=== PATIENT | male | born 1975 | race Caucasian/White ===

== ENCOUNTER 2018-10-26 12:03 | Inpatient (IN) ==
[2018-10-26] MEDS ORDERED: AMIDATE ONE (12:07)
[2018-10-26] MEDS ORDERED: QUELICIN ONE (12:07)
[2018-10-26] MEDS ORDERED: NARCAN ONE ×2 (12:08)
[2018-10-26] MEDS: DIPRIVAN 1% 1,000 MG/100 ML BOTTLE IV SCH ×2 (12:15→20:15)
[2018-10-26] MEDS ORDERED: MORPHINE ONE (12:17)
[2018-10-26] MEDS ORDERED: DIPRIVAN 1% 1,000 MG/100 ML BOTTLE ONE (12:17)
[2018-10-26] MEDS ORDERED: NS 1,000 ML IV ONE ×2 (12:19→12:30)
[2018-10-26] MEDS: LEVOPHED 8 MG in D5 1/2 NS 250 ML IV SCH (12:30)
[2018-10-26 12:47] LABS: BASO# 0.01 X1000 (0.0-0.2); HEMATOCRIT 47.4 % (42.0-52.0); HEMOGLOBIN 15.1 g/dL (14.0-18.0); IMM GRAN# 0.06 X1000 (0.0-0.04); IMM GRAN% 0.3 % (0.0-0.5); LYMPH# 0.56 X1000 (1.2-3.4); LYMPH% 2.7 % (20.5-51.1); MCH 27.5 PG (27-31); MCHC 31.9 g/dL (33-37); MCV 86.2 FL (81-99); MONO% 6.3 % (1.7-9.3); MPV 10.1 FL (7.4-10.4); NEUT# 18.67 X1000 (1.4-6.5); NEUT% 90.7 % (42.2-75.2); PLT 366 X1000 (130-400); RDW 13.7 % (11.5-14.5)
[2018-10-26 12:49] LABS: INR 1.22; PROTIME 16.4 Seconds (11.0-16.0)
[2018-10-26 12:50] LABS: PTT 34.4 Seconds (22.3-41.8)
--- NOTE | 2018-10-26 12:52 | Diag Imaging Result Doc PS360 ---
CHEST-PORTABLE - 10/26/2018 INDICATION: post intubation COMPARISON: 05/07/2016 FINDINGS: There is an endotracheal tube in good position at about T3. There is a nasogastric tube coiled in the stomach. There are bibasilar infiltrates right greater than left. IMPRESSION: Bilateral basilar infiltrate/pneumonia. Good support tube placement. Electronically signed by Chay Steinberg 10/26/2018 12:49 PM
[2018-10-26] MEDS ORDERED: NS 2,000 ML ONE (12:58)
[2018-10-26 13:02] LABS: URINE SOURCE CATH
[2018-10-26 13:09] LABS: BILIRUBIN URINE NEGATIVE (NEGATIVE); BLOOD URINE NEGATIVE (NEGATIVE); COLOR YELLOW; GLUCOSE URINE NEGATIVE (NEGATIVE); KETONE URINE NEGATIVE (NEGATIVE); LEUKOCYTES URINE NEGATIVE (NEGATIVE); NITRITE URINE NEGATIVE (NEGATIVE); PH URINE 5.5; PROTEIN URINE 30 mg/dL (NEGATIVE); SP GRAVITY URINE 1.012; TURBIDITY URINE HAZY (CLEAR); UROBILINOGEN URINE 2 mg/dL (NORMAL)
[2018-10-26 13:13] LABS: UR EPITHELIAL CELLS <10 /HPF (<10); URINE BACTERIA NEGATIVE /HPF; URINE RBC <10 /HPF (<10); URINE WBC <10 /HPF (<10)
[2018-10-26 13:15] LABS: ALB/GLOB RATIO 1.1; CALCIUM 8.9 mg/dL (8.8-10.2); CREATININE 5.3 mg/dL (0.7-1.2); TOTAL BILIRUBIN 1.12 mg/dL (0.20-1.00); TOTAL PROTEIN 7.5 g/dL (6.3-8.3)
[2018-10-26 13:19] LABS: POTASSIUM 6.7 mmol/L (3.5-5.1)
[2018-10-26] MEDS ORDERED: HUMULIN R IV ONE (13:30)
[2018-10-26] MEDS ORDERED: SODIUM BICARBONATE 8.4% IV ONE (13:30)
[2018-10-26] MEDS ORDERED: ZOSYN 3.375 GM in NS 50 ML IV ONE (13:30)
[2018-10-26] MEDS ORDERED: D50W SYRINGE IV ONE (13:30)
[2018-10-26] MEDS ORDERED: VANCOMYCIN 1 GM/NS 1 GM/250 ML IVPB IV ONE (13:30)
[2018-10-26] MEDS ORDERED: QUELICIN IV ONE (13:39)
[2018-10-26] MEDS ORDERED: MORPHINE IV ONE (13:39)
[2018-10-26] MEDS ORDERED: AMIDATE IV ONE (13:39)
[2018-10-26] MEDS ORDERED: NARCAN IV ONE (13:39)
[2018-10-26 14:37] LABS: BE -2.8 mmoll (-3.0-3.0); BLOOD TYPE ARTERIAL; HCO3-(ACT) 22.7 mmoll (20.0-26.0); METHB 1.5 % (0.0-1.5); O2(CT) 19.1 mL/dL (15.0-23.0); O2HB 97.2 % (95.0-99.0); PCO2(98.6) 49 mmHg (35-45); PO2(98.6) 235 mmHg (60-100); SAMPLE BLOOD; SAO2 99.9 % (95.0-100.0); SRATE 16 BPM; THB 13.6 g/dL (11.5-17.4); TVOL 550 mL
[2018-10-26 14:40] LABS: ALLEN TEST NO; MODALITY VENTILATOR
[2018-10-26] MEDS ORDERED: SOLU-CORTEF IV ONE (15:22)
--- NOTE | 2018-10-26 15:26 | EKG Report ---
Test Performed on : 10/26/2018 12:20:04 PM Test Reason : UNRESPONSIVE Blood Pressure : / mmHG Vent. Rate : 135 BPM Atrial Rate : 138 BPM P-R Int : 122 ms QRS Dur : 094 ms QT Int : 324 ms P-R-T Axes : 059 035 040 degrees QTc Int : 486 ms Sinus tachycardia. Incomplete right bundle branch block Borderline ECG When compared with ECG of 11-MAY-2018 08:39, Vent. rate has increased BY 54 BPM Criteria for Inferior infarct are no longer present Nonspecific T wave abnormality has replaced inverted T waves in Inferior leads Unconfirmed Result
[2018-10-26] MEDS: FENTANYL 1,000 MICROGM in NS 80 ML IV SCH ×3 (15:51→20:23)
[2018-10-26] MEDS ORDERED: OFIRMEV 1000 MG/ISOTONIC SOLN 1,000 MG/100 ML BOTTLE IV ONE (16:17)
--- NOTE | 2018-10-26 16:55 | Diag Imaging Result Doc PS360 ---
EXAM: CT HEAD W/O CONTRAST HISTORY: ams TECHNIQUE: CT head without contrast COMPARISON: 06/27/2018 FINDINGS: No parenchymal hemorrhage. No epidural or subdural hematoma. No subarachnoid hemorrhage. No mass identified on this noncontrasted exam. No hydrocephalus. Mild ethmoid and maxillary mucosal thickening with a small air-fluid level in the left maxillary sinus. There is a nasogastric tube. IMPRESSION: No hemorrhage. A follow-up MRI may be beneficial. This exam was performed using automated exposure control, adjustment of mA or kV according to patient size, and/or use of iterative reconstruction technique. Electronically signed by Angelito Neff 10/26/2018 4:53 PM
--- NOTE | 2018-10-26 17:30 | PROVIDER DOCUMENTATION ---
This chart was entered by Yoli Garcia Scribe, acting as scribe for Pierre Gale MD. HPI-Neurological Disorder - General Chief Complaint: Unresponsive Stated Complaint: unresponsive Time Seen by Provider: 10/26/18 12:16 Source: EMS Allergies/Adverse Reactions: Patient Allergies Allergy/AdvReac Type Severity Reaction Status Date / Time No Known Allergies Allergy Verified 10/26/18 13:35 Home Medications: Home Medication List Medication Instructions Recorded Confirmed Last Taken Type Lisinopril 40 mg PO DAILY 07/15/14 05/16/18 05/15/18 07:00 History 40 Celecoxib [Celebrex] 100 mg PO DAILY 05/11/18 05/16/18 05/15/18 07:00 History 100 Escitalopram [Lexapro] 10 mg PO DAILY 05/11/18 05/16/18 05/15/18 07:00 History 10 Hydrocodone/Acetaminophen [[place] 1 each PO Q4-6H PRN PRN #30 tablet 05/16/18 Unknown Rx 10-325 Tablet] Mouthwash Compounding Base 227 240 ml MM DIRECTED #240 05/16/18 Unknown Rx [Mouthwash-Om] mouthwash Hydrocodone/APAP 10 mg/325 mg 1 ea PO Q6H PRN PRN 3 Days #12 tab 06/27/18 Un known Rx [[place]-10] Mupirocin Cream [Bactroban Cream] 1 applicatn TOP TID 7 Days #1 tube 06/27/18 Unknown Rx - History of Present Illness-Neuro Nature of Presenting Problem: Patient is a 43 year old male who presents to the ED via EMS with altered mental status. EMS states patient was found unresponsive around 1100. Reports patient had a 64% O2 sat and was breathing about 6 times a minute. Patient has a history of throat and tongue cancer. Received his last chemo treatment yesterday. Patient is prescribed pain medications. EMS gave the patient 0.5 mg of Narcan which increased patient's respirations and made his vomit. Patient received 400 cc of fluid and 4 mg of zofran prior to arrival. 1202 - Patient arrived in ED via EMS. 1209 - patient was given 0.4 mg of Narcan with no change. 1212 - 20 mg of Etomidate given. 100 mg of Succ. 1213 - intubation placed. Severity: reports: severe Onset/Duration: reports: this afternoon Timing: reports: still present Context: reports: other (AMS) Character of Altered Mental Status: reports: unresponsive Any recent trauma/injury?: reports: none Cognitive Baseline: alert, oriented x3 Gait Baseline: walks without assistance Associated Symptoms: reports: denies symptoms Similar Symptoms Previously?: No Recently seen or treated by another doctor?: No Review of Systems - Adult - REVIEW OF SYSTEMS - ADULT ROS:: unobtainable per condition Constitutional: reports: no symptoms reported Eyes: reports: no symptoms reported Ears, Nose, Mouth & Throat: reports: no symptoms reported Cardiovascular: reports: no symptoms reported Respiratory: reports: no symptoms reported Gastrointestinal: reports: no symptoms reported Genitourinary: reports: no symptoms reported Musculoskeletal: reports: no symptoms reported Integumentary: reports: no symptoms reported Neurological: reports: no symptoms reported Psychiatric: reports: no symptoms reported Endocrine: reports: no symptoms reported Hematologic/Lymphatic: reports: no symptoms reported Allergic/Immunologic: reports: no symptoms reported All Other Systems: Reviewed and Negative Past History - Adult - PAST MEDICAL HISTORY-ADULT Review of Records: reports: Nursing Assessment Review, Medications Reviewed, Social history reviewed & non-contributory. Major Childhood Illnesses: reports: denies history Cardiovascular: reports: HTN Respiratory: reports: denies history Gastrointestinal: reports: cancer, other (diverticulitis) Obstetrical/Gynecological: reports: denies history Genitourinary: reports: denies history Musculoskeletal: reports: denies history Neurological: reports: denies history Psychiatric: reports: denies history, other (ADHD) Endocrine/Immune: reports: denies history Other Conditions: reports: denies history - PRIOR SURGERIES/PROCEDURES Surgical/Procedure History: reports: appendectomy, orthopedic (extremity) (right ankle Fx x6; left ankle x7), other (tendon repair) - IMMUNIZATION STATUS Childhood Immunizations: UTD, See Nurse Assessment Flu Vaccine: See Nurse Assessment - FAMILY HISTORY Family History: reviewed, not pertinent - SOCIAL HISTORY Smoking: cigarettes, less than 1 pack/day Substance Use: denies Living Situation: friend Physical Exam- Neurological - Physical Exam-Neuro Initial Vital Signs Reviewed: Yes General Appearance: other (unresponsive). negative: appears well, alert Head Injury: no evidence of injury. negative: contusions, ecchymosis, lacer ations Respiratory: lungs clear, normal breath sounds, respiratory distress (moderate), other (unable to protect airway). negative: crackles, stridor Cardiovascular: tachycardia. negative: systolic murmur wreath machine tender Exam: other (unable to assess per patient's condition) Coordination/Gait: other (unable to assess per patient's condition) Motor/Sensory: other (unable to assess per patient's condition) Neurologic: other (unable to assess per patient's condition) Psych/Mental Status: other (unresponsive) Progress - PLAN OF CARE/RESULTS Progress/Plan/Lab Results: Vital Signs - 8 hr 10/26/18 12:10 10/26/18 16:54 10/26/18 17:20 Temperature 102.4 F H Pulse Rate 130 H 112 H Respiratory Rate 24 35 H Blood Pressure 89/61 O2 Sat by Pulse Oximetry 98 100 100 Laboratory Results - last 24 hr 10/26/18 10/26/18 10/26/18 12:25 12:25 12:25 WBC 20.60 H RBC 5.50 Hgb 15.1 Hct 47.4 MCV 86.2 MCH 27.5 MCHC 31.9 L RDW Std Deviation 13.7 Plt Count 366 MPV 10.1 Immature Gran % (Auto) 0.3 Neut % (Auto) 90.7 H Lymph % (Auto) 2.7 L [facility] % (Auto) 6.3 Eos % (Auto) 0.0 Baso % (Auto) 0.0 Immature Gran # (Auto) 0.06 H Neut # (Auto) 18.67 H Lymph # (Auto) 0.56 L [facility] # (Auto) 1.30 H Eos # (Auto) 0.00 Baso # (Auto) 0.01 PT 16.4 H INR 1.22 PTT (Actin FS) 34.4 Specimen Type Sample Site pH pCO2 pO2 HCO3 Base Excess Oxyhemoglobin ABG O2 Sat (Calculated) ABG O2 Saturation ABG Carboxyhemoglobin ABG Methemoglobin Eduardo Test A-a O2 Difference Total Hemoglobin Lactate Blood Gas Modality Spontaneous Rate FiO2 % Tidal Volume Sodium 135 L Potassium 6.7 H* Chloride 88 L Carbon Dioxide 28 Anion Gap 19 BUN 25 H Creatinine 5.3 H Estimated GFR/1.73 m2 12 BUN/Creatinine Ratio 5 Glucose 134 H Calculated Osmolality 276 Calcium 8.9 Total Bilirubin 1.12 H AST 1808 H ALT 1316 H Alkaline Phosphatase 103 Troponin T Total Protein 7.5 Albumin 4.0 Globulin 3.5 Albumin/Globulin Ratio 1.1 Plasma Lactate Urine Source Urine Color Urine Turbidity Urine pH Ur Specific [place] Urine Protein Ur Glucose (Stick) Ur Ketones (Stick) Urine Blood Urine Nitrite Urine Bilirubin Urobilinogen Dipstick Urine Leukocytes Urine WBC (Auto) Urine RBC (Auto) U Epithel Cells (Auto) Urine Bacteria (Auto) 10/26/18 10/26/18 10/26/18 12:25 12:55 13:43 WBC RBC Hgb Hct MCV MCH MCHC RDW Std Deviation Plt Count MPV Immature Gran % (Auto) Neut % (Auto) Lymph % (Auto) [facility] % (Auto) Eos % (Auto) Baso % (Auto) Immature Gran # (Auto) Neut # (Auto) Lymph # (Auto) [facility] # (Auto) Eos # (Auto) Baso # (Auto) PT INR PTT (Actin FS) Specimen Type Sample Site pH pCO2 pO2 HCO3 Base Excess Oxyhemoglobin ABG O2 Sat (Calculated) ABG O2 Saturation ABG Carboxyhemoglobin ABG Methemoglobin Eduardo Test A-a O2 Difference Total Hemoglobin Lactate Blood Gas Modality Spontaneous Rate FiO2 % Tidal Volume Sodium Potassium Chloride Carbon Dioxide Anion Gap BUN Creatinine Estimated GFR/1.73 m2 BUN/Creatinine Ratio Glucose Calculated Osmolality Calcium Total Bilirubin AST ALT Alkaline Phosphatase Troponin T 0.437 H* Total Protein Albumin Globulin Albumin/Globulin Ratio Plasma Lactate 5.6 H Urine Source CATH Urine Color YELLOW Urine Turbidity HAZY Urine pH 5.5 Ur Specific [place] 1.012 Urine Protein 30 A Ur Glucose (Stick) NEGATIVE Ur Ketones (Stick) NEGATIVE Urine Blood NEGATIVE Urine Nitrite NEGATIVE Urine Bilirubin NEGATIVE Urobilinogen Dipstick 2 A Urine Leukocytes NEGATIVE Urine WBC (Auto) <10 Urine RBC (Auto) <10 U Epithel Cells (Auto) <10 Urine Bacteria (Auto) NEGATIVE 10/26/18 10/26/18 14:04 15:40 WBC RBC Hgb Hct MCV MCH MCHC RDW Std Deviation Plt Count MPV Immature Gran % (Auto) Neut % (Auto) Lymph % (Auto) [facility] % (Auto) Eos % (Auto) Baso % (Auto) Immature Gran # (Auto) Neut # (Auto) Lymph # (Auto) [facility] # (Auto) Eos # (Auto) Baso # (Auto) PT INR PTT (Actin FS) Specimen Type ARTERIAL Sample Site R BRACHIAL pH 7.30 L pCO2 49 H pO2 235 H HCO3 22.7 Base Excess -2.8 Oxyhemoglobin 97.2 ABG O2 Sat (Calculated) 19.1 ABG O2 Saturation 99.9 ABG Carboxyhemoglobin 1.20 ABG Methemoglobin 1.5 Eduardo Test NO A-a O2 Difference 417.0 Total Hemoglobin 13.6 Lactate 1.80 Blood Gas Modality VENTILATOR Spontaneous Rate 16 FiO2 % 100.0 Tidal Volume 550 Sodium Potassium Chloride Carbon Dioxide Anion Gap BUN Creatinine Estimated GFR/1.73 m2 BUN/Creatinine Ratio Glucose Calculated Osmolality Calcium Total Bilirubin AST ALT Alkaline Phosphatase Troponin T Total Protein Albumin Globulin Albumin/Globulin Ratio Plasma Lactate 2.1 Urine Source Urine Color Urine Turbidity Urine pH Ur Specific [place] Urine Protein Ur Glucose (Stick) Ur Ketones (Stick) Urine Blood Urine Nitrite Urine Bilirubin Urobilinogen Dipstick Urine Leukocytes Urine WBC (Auto) Urine RBC (Auto) U Epithel Cells (Auto) Urine Bacteria (Auto) Orders Category Date Time Status CHEST-PORTABLE [RAD] Stat Exams 10/26/18 12:[address] HEAD W/O CONTRAST [CT] Stat Exams 10/26/18 12:18 Completed ABG [RESP] Routine Lab 10/26/18 14:04 Completed CBC WITH ELECTRONIC DIFF [HEME] Stat Lab 10/26/18 12:25 Completed COMPREHENSIVE METABOLIC PANEL [CHEM] Stat Lab 10/26/18 12:25 Completed LACTATE, PLASMA [CHEM] Stat Lab 10/26/18 13:43 Completed LACTATE, PLASMA [CHEM] Stat Lab 10/26/18 15:40 Completed PROTIME WITH INR [COAG] Stat Lab 10/26/18 12:25 Completed PTT [COAG] Stat Lab 10/26/18 12:25 Completed TROPONIN T Stat Lab 10/26/18 12:25 Completed UA NIMS W/REFLEX CULT [URINALYSIS] Stat Lab 10/26/18 15:31 Ordered URINALYSIS W/POSS RFLX CULT [URINALYSIS] Stat Lab 10/26/18 12:55 Completed 0.9% Sodium Chloride Inj [Ns] 1,000 ml Med 10/26/18 12:58 Discontinued .ROUTE As directed 0.9% Sodium Chloride Inj [Ns] 1,000 ml Med 10/26/18 12:19 Discontinued IV 999 mls/hr 0.9% Sodium Chloride Inj [Ns] 80 ml Med 10/26/18 15:30 Active Fentanyl 1,000 microgm IV As Directed mls/hr Acetaminophen [Ofirmev 1000 mg/Isotonic Soln] Med 10/26/18 16:17 Discontinued 1,000 mg in 100 ml IV NOW Dextrose 5%-0.45% NaCl Inj [D5 1/2 Ns] 250 ml Med 10/26/18 14:00 Active Norepinephrine [Levophed] 8 mg IV As Directed mls/hr Dextrose 50% Syringe [D50w Syringe] Med 10/26/18 13:30 Discontinued 50 ml IV NOW ONE Etomidate [Amidate] Med 10/26/18 13:39 Discontinued 20 mg IV NOW ONE Etomidate [Amidate] Med 10/26/18 12:07 Discontinued 40 mg .ROUTE .STK-MED ONE Hydrocortisone Sod Succinate [Solu-Cortef] Med 10/26/18 15:22 Discontinued 100 mg IV NOW ONE Insulin Human Regular [Humulin R] Med 10/26/18 13:30 Discontinued 10 unit IV NOW ONE Morphine Med 10/26/18 12:17 Discontinued 4 mg .ROUTE .STK-MED ONE Morphine Med 10/26/18 13:39 Discontinued 4 mg IV NOW ONE Naloxone [Narcan] Med 10/26/18 12:08 Discontinued 0.4 mg .ROUTE .STK-MED ONE Naloxone [Narcan] Med 10/26/18 13:39 Discontinued 0.4 mg IV NOW ONE Naloxone [Narcan] Med 10/26/18 12:08 Discontinued 2 mg .ROUTE .STK-MED ONE Piperacillin/Tazobactam [Zosyn] 3.375 gm Med 10/26/18 13:30 Discontinued 0.9% Sodium Chloride Inj [Ns] 50 ml IV NOW Propofol [Diprivan 1%] Med 10/26/18 12:17 Discontinued 1,000 mg in 100 ml .ROUTE As directed Propofol [Diprivan 1%] Med 10/26/18 13:45 Active 1,000 mg in 100 ml IV As Directed mls/hr Sodium Bicarbonate 8.4% Med 10/26/18 13:30 Discontinued 50 meq IV NOW ONE Succinylcholine [Quelicin] Med 10/26/18 13:39 Discontinued 100 mg IV NOW ONE Succinylcholine [Quelicin] Med 10/26/18 12:07 Discontinued 200 mg .ROUTE .STK-MED ONE Vancomycin 1 gm/Ns Med 10/26/18 13:30 Discontinued 1 gm in 250 ml IV NOW Ventilator Order Stat Oth 10/26/18 12:10 Active EKG [EKG] Stat Ther 10/26/18 12:20 Draft Result Diagrams: 10/26/18 12:25 10/26/18 12:25 - EKG 1 Time of EKG reading by physician:: 12:20 EKG Read and Signed by:: Pierre Gale EKG Interpretation (*Must complete 3 of following elements*): Abnormal Rate: 135 Rhythm: sinus tachycardia QRS: RBB MO Interval: normal Comments: borderline ECG - XRAY 1 XRAY Study: Chest Impression: See EMR Report ( CHEST-PORTABLE - 10/26/2018 INDICATION: post intubation COMPARISON: 05/07/2016 FINDINGS: There is an endotracheal tube in good position at about T3. There is a nasogastric tube coiled in the stomach. There are bibasilar infiltrates right greater than left. IMPRESSION: Bilateral basilar infiltrate/pneumonia. Good support tube placement. Electronically signed by Chay Steinberg 10/26/2018 12:49 PM 10/26/18 1249 Interpreting Physician: Chay Steinberg MD Dictated Date/Time: 10/26/18 1249 cc: Pierre Gale MD; None,PCP) - CT/MRI 1 CT Study: Head Impression: See EMR Report ( EXAM: CT HEAD W/O CONTRAST HISTORY: ams TECHNIQUE: CT head without contrast COMPARISON: 06/27/2018 FINDINGS: No parenchymal hemorrhage. No epidural or subdural hematoma. No subarachnoid hemorrhage. No mass identified on this noncontrasted exam. No hydrocephalus. Mild ethmoid and maxillary mucosal thickening with a small air-fluid level in the left maxillary sinus. There is a nasogastric tube. IMPRESSION: No hemorrhage. A follow-up MRI may be beneficial. This exam was performed using automated exposure control, adjustment of mA or kV according to patient size, and/or use of iterative reconstruction technique. Electronically signed by Angelito Neff 10/26/2018 4:53 PM 10/26/18 1653 Interpreting Physician: Angelito Neff MD Dictated Date/Time: 10/26/18 1650 cc: Pierre Gale MD; N one,PCP) - CONSULTS/PCP/HOSPITALIST Notification #1 *Consult/PCP/Hospitalist*: RIVAS Hernandez for Hospitalist Time Discussed: 15:54 Reason/Comments: Dr. Gale consulted with Mary about patient Consult Disposition: other (will call back when CT results.) #2 Consult: RIVAS Hernandez for Hospitalist Time Discussed: 17:05 Reason/Comments: Dr. Gale consulted with Mary about patient. Consult Disposition: Will see in ED, Admit Procedures - INTUBATION Time of Intubation: 12:13 Airway Evaluation: Copious Secretions Intubation Method: orotracheal Equipment: ETT Tube Size (cm): 8.0 Pretreated with 100% Oxygen?: Yes Breath Sounds after Intubation: equal ETT Primary Tube Confirmation: Capnometry CO2 Change, Direct Visualization, Chest Rise and Fall Intubation Complications: no complications Vent Settings: See Respiratory Therapy Notes Departure - Departure Date of Disposition Decision: 10/26/18 Time of Disposition Decision: 17:22 DIAGNOSIS: Altered mental status, Respiratory failure, Sepsis, Pneumonia, Hyperkalemia, Acute renal failure Disposition: ADMITTED INPATIENT 09 Certified Medical Emergency: Emergent Condition: Critical Referrals and Follow-Ups: None,PCP [Primary Care Provider] - - Critical Care Note This patient required my direct & personal management of CC.: Yes Total Time (mins): 78 Critical Care Statement: This patient required my direct personal management to treat or rule out processes, the absence of which, could potentiallly result in sudden, clinically significant life or limb threatening deterioration. Attestation - Physician/ HIMA Attestation The physician spent face to face time with patient:: Yes Advanced Practice Provider documentation review:: Supervising physician onsite and consulted in the evaluation and care of this patient. The physician did have a face to face encounter with the patient. This chart was documented by the indicated scribe, (Yoli Garcia Scribe) and accurately reflects the services I performed and decisions made by me, Pierre Gale MD, as attested by the provider's signature.
[2018-10-26] MEDS ORDERED: ZOSYN 3.375 GM in NS 50 ML IV SCH (18:00)
[2018-10-26] MEDS ORDERED: SODIUM CHLORIDE 0.9% INJ SCH (18:00)
[2018-10-26] MEDS ORDERED: NS 2,000 ML IV ONE (18:09)
[2018-10-26 18:40] LABS: URINE SOURCE CATH
[2018-10-26 18:47] LABS: BASO# 0.02 X1000 (0.0-0.2); BASO% 0.1 % (0.0-0.8); HEMATOCRIT 44.8 % (42.0-52.0); HEMOGLOBIN 14.7 g/dL (14.0-18.0); IMM GRAN# 0.05 X1000 (0.0-0.04); IMM GRAN% 0.4 % (0.0-0.5); LYMPH# 0.26 X1000 (1.2-3.4); LYMPH% 1.9 % (20.5-51.1); MCH 28.3 PG (27-31); MCHC 32.8 g/dL (33-37); MCV 86.2 FL (81-99); MONO# 0.71 X1000 (0.11-0.59); MONO% 5.1 % (1.7-9.3); MPV 9.6 FL (7.4-10.4); NEUT# 12.81 X1000 (1.4-6.5); NEUT% 92.5 % (42.2-75.2); PLT 207 X1000 (130-400); RDW 13.7 % (11.5-14.5); WBC 13.85 X1000 (4.8-10.8)
[2018-10-26 18:50] LABS: BILIRUBIN URINE NEGATIVE (NEGATIVE); BLOOD URINE LARGE (NEGATIVE); COLOR YELLOW; GLUCOSE URINE NEGATIVE (NEGATIVE); KETONE URINE NEGATIVE (NEGATIVE); LEUKOCYTES URINE NEGATIVE (NEGATIVE); NITRITE URINE NEGATIVE (NEGATIVE); PH URINE 5.5; PROTEIN URINE 200 mg/dL (NEGATIVE); SP GRAVITY URINE 1.009; TURBIDITY URINE HAZY (CLEAR); UR EPITHELIAL CELLS <10 /HPF (<10); URINE BACTERIA NEGATIVE /HPF; URINE WBC <10 /HPF (<10); UROBILINOGEN URINE NORMAL (NORMAL)
[2018-10-26 19:00] LABS: LYMPHS 2 % (21-51); MONO 6 % (1-9); SEGS 92 % (42-75)
[2018-10-26 19:02] LABS: URINE CASTS GRANULAR PRESENT; URINE YEAST NONE SEEN
[2018-10-26 19:03] LABS: URINE CRYSTALS NONE SEEN
[2018-10-26] MEDS: ZYVOX 600 MG/D5W 600 MG/300 ML IVPB IV SCH (19:17)
[2018-10-26] MEDS: NS 1,000 ML IV SCH (19:17)
[2018-10-26] MEDS: PROTONIX IV SCH (19:17)
[2018-10-26 19:57] LABS: ALB/GLOB RATIO 0.8; ALBUMIN 2.6 g/dL (3.5-5.0); CALCIUM 7.8 mg/dL (8.8-10.2); CREATININE 4.9 mg/dL (0.7-1.2); POTASSIUM 4.8 mmol/L (3.5-5.1); TOTAL BILIRUBIN 1.81 mg/dL (0.20-1.00)
[2018-10-26 20:34] LABS: CK INDEX 0.2 (0.0-2.5); CK-MB 39.6 ng/mL (0.0-5.0)
--- NOTE | 2018-10-26 20:36 | HISTORY AND PHYSICAL ---
CHIEF COMPLAINT: Unresponsive. HISTORY OF PRESENT ILLNESS: This is a 43-year-old gentleman with a prior history of laryngeal cancer, as well as cancer to his left side of his tongue. The patient presented to the emergency room via EMS after being found unresponsive. 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 Reportedly was at the station sleeping and around 11:00, they noticed a change in his breathing, ON evaluation, he was found breathing about 6 times a minute with a room air O2 saturation of 64%. He was given 0.5 of Narcan and his respirations increased somewhat. He vomited. He was given a 400 mL bolus and Zofran en route to the emergency room. On arrival to the emergency room, the patient was intubated per the emergency room physician and placed on a ventilator. At the time of my exam the patient is intubated. He is sedated with fentanyl and propofol. PAST MEDICAL HISTORY: Cancer of the tongue and mouth, prior GI bleed. PAST SURGICAL HISTORY: Appendectomy, tendon repair, right ankle surgery, left ankle surgery. He had an excisional biopsy of the ulceration of the left ventral tongue. SOCIAL HISTORY: He is . ALLERGIES: There are no documented allergies. HOME MEDICATIONS: A list will be obtained by the nursing staff and once verified will review and restart as appropriate. REVIEW OF SYSTEMS: Unable to obtain. PHYSICAL EXAMINATION: GENERAL: This is a 43-year-old gentleman who is lying flat on the stretcher in the emergency room. He is intubated and sedated. VITAL SIGNS: Blood pressure is 95/64 with a heart rate of 100, O2 saturations are 99 and 100%. HEENT: Eyes: Pupils are equal, round, react to light. Sclerae anicteric. Head is normocephalic, atraumatic. Mucous membranes are dry. He is intubated. PULMONARY: Breath sounds have rhonchi scattered throughout. Chest rises and falls symmetrically with respiration. CARDIOVASCULAR: Regular rate and rhythm. S1, S2 appreciated. Peripheral pulses are palpable. GASTROINTESTINAL: Abdomen is soft, nondistended, with bowel sounds in all 4 quadrants. NEUROLOGIC: The patient is sedated. SKIN: Warm and dry with no rashes or lesions noted. LABS: WBC is 20.6 with hemoglobin 15.1, hematocrit 47.4, platelets of 366. His INR is 1.22. Sodium 135, potassium 6.7, BUN 25, creatinine 5.3 with a glucose of 134. Total bilirubin is 1.12 with AST 1808, ALT 1316, alkaline phosphatase 103. His troponin was 0.437. Lactate is 5.6. CT of the head revealed no hemorrhage, no epidural or subdural hematoma. No subarachnoid hemorrhage, no mass identified, no hydrocephalus. There is an NG tube present. ASSESSMENT AND PLAN: 1. Acute hypoxemic respiratory failure. The patient is intubated. We will consult Dr. Palma in pulmonology. 2. Pneumonia. This is very likely aspiration as he did vomit. We will obtain a sputum specimen. Blood cultures will be drawn. Antibiotic coverage of Zosyn and Zyvox. 3. Acute kidney injury. He has received 4 L of fluid in the emergency room. Continue with hydration. Renal dose medications. Consult Dr. Lewis. 4. Hyperkalemia. He received insulin 10 units with sodium bicarb in the emergency room. We will recheck his labs and if potassium remains elevated, we will treat with Lokelma 10 g now and then repeat in 4 hours. 5. Elevated troponin. We will continue to trend troponin. Repeat an EKG. Consult Cardiology. 6. Septic shock: secondary to pneumonia, possible neck abscess, as stated above. 7. Hypotension - Continue Levophed. 7. History of Hypertension. Aware 8. For gastrointestinal prophylaxis will give Protonix 40 mg IV q.12 hours. 9. For deep vein thrombosis prophylaxis will use heparin 5000 subcu q.12, renal dose. 10. Multiorgan Failure with shock liver. Further treatments pending hospital course. Patient seen and examined by me face to face, all the laboratory, vitals signs and images were reviewed, patient brought to the emergency department with mental status changes and respiratory failure, he has a history of tongue cancer and recently had radiation, he has not been able to eat or drink to much, found basically unresponsive and with low respiratory rate, he received Narcan, apparently he vomited as well, likely he aspirated before coming to the hospital, in the ED he was found hypotensive, with hypoxemic respiratory failure, was intubated and placed on pressors, at the moment of my physical exam his mother was at the bedside, he had bilateral rhonchi and crackles bilaterally, sedated, I explained to his mother that he was remarkably sick, he will be transfer to the ICU, continue with pressors, broad spectrum antibiotics, mechanical ventilation, Pulmonary department, nephrology department, ID department as well as Cardiology will be consulted, I agree with the rest of the CHEMICAL TESTER's assessment and plan, Ck Villalobos MD Dictated by RIVAS Hay for Ck Trejo MD cc: RIVAS Hay MD [facility]
[2018-10-26] MEDS ORDERED: HEPARIN SUBQ SCH (21:00)
[2018-10-26 21:15] LABS: ACETAMINOPHEN 6.6 ug/mL (10-30); SALICYLATES < 3.00 mg/dL (3-10)
[2018-10-26] MEDS ORDERED: SODIUM BICARBONATE 8.4% 100 MEQ in D5W 1,000 ML IV SCH (21:30)
[2018-10-26 22:13] LABS: UR AMPHETAMINES QUAL NONE DETECTED (NONE DETECT); UR BARBITUATES QUAL NONE DETECTED (NONE DETECT); UR BENZODIAZEPIN QUAL NONE DETECTED (NONE DETECT); UR CANNABINOIDS QUAL NONE DETECTED (NONE DETECT); UR COCAINE QUAL NONE DETECTED (NONE DETECT); UR METHADONE QUAL NONE DETECTED (NONE DETECT); UR OPIATES QUAL PRESUMPTIVE POSITIVE (NONE DETECT); UR OXYCODONE QUAL NONE DETECTED (NONE DETECT); UR PCP QUAL NONE DETECTED (NONE DETECT)
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
[2018-10-26] MEDS: ZOSYN 2.25 GM in NS 50 ML IV SCH (22:53)
[2018-10-26] MEDS: SODIUM BICARBONATE 8.4% 100 MEQ in D5W 1,000 ML IV SCH (23:01)
--- NOTE | 2018-10-26 23:02 | ECHO REPORT ---
ORDER DATE: 10/26/2018 SUMMARY: 1. Technically difficult study due to limited acoustic window quality. 2. Aortic valve is trileaflet and opens normally on 2-dimensional images. Peak gradient across aortic valve is less than 10 mmHg. Mitral, tricuspid, and pulmonic valves are without evidence of structural abnormality. There is mild tricuspid regurgitation. The estimated systolic PA pressure by Doppler is 35 mmHg. Mild pulmonary hypertension suggested. Aortic root is normal in size. 3. Normal left ventricular dimension suggested on 2-dimensional images. Estimated left ejection fraction appears to be at least 55%. No obvious regional wall motion abnormalities are evident. Brinkley not well demonstrated. Left atrium, right atrium, and right ventricle are normal in size with grossly preserved right ventricular systolic function. 4. No pericardial effusion. 5. Inferior vena cava is dilated and is a nonspecific finding and the patient on ventilator at time of study. cc: MD Cynthia Santana CRNP
[2018-10-27] MEDS: DUONEB (A & A) INH SCH ×5 (00:05→16:15)
[2018-10-27] MEDS: LEVOPHED 8 MG in D5 1/2 NS 250 ML IV SCH ×3 (00:16→12:24)
[2018-10-27] MEDS: SODIUM BICARBONATE 8.4% 100 MEQ in D5W 1,000 ML IV SCH (00:18)
[2018-10-27 01:21] LABS: CK INDEX 0.2 (0.0-2.5); CK-MB 33.53 ng/mL (0.0-5.0)
[2018-10-27] MEDS: FENTANYL 1,000 MICROGM in NS 80 ML IV SCH ×2 (01:24→06:05)
[2018-10-27] MEDS: NS 1,000 ML IV SCH ×2 (02:00→14:45)
[2018-10-27] MEDS: DIPRIVAN 1% 1,000 MG/100 ML BOTTLE IV SCH (03:27)
[2018-10-27] MEDS: ZOSYN 2.25 GM in NS 50 ML IV SCH ×3 (04:25→15:34)
[2018-10-27 04:30] LABS: BLOOD TYPE ARTERIAL; SAMPLE BLOOD
[2018-10-27 04:48] LABS: ALLEN TEST YES; BE 6.1 mmoll (-3.0-3.0); HCO3-(ACT) 29.7 mmoll (20.0-26.0); METHB 1.4 % (0.0-1.5); O2HB 97.3 % (95.0-99.0); PCO2(98.6) 49 mmHg (35-45); PO2(98.6) 201 mmHg (60-100); SAO2 99.5 % (95.0-100.0); SRATE 16 BPM; THB 13.6 g/dL (11.5-17.4); TVOL 550 mL; pH(98.6) 7.42 (7.35-7.45)
[2018-10-27 04:49] LABS: MODALITY VENTILATOR
[2018-10-27 04:56] LABS: UR AMPHETAMINES QUAL NONE DETECTED (NONE DETECT); UR BARBITUATES QUAL NONE DETECTED (NONE DETECT); UR BENZODIAZEPIN QUAL NONE DETECTED (NONE DETECT); UR CANNABINOIDS QUAL NONE DETECTED (NONE DETECT); UR COCAINE QUAL NONE DETECTED (NONE DETECT); UR METHADONE QUAL NONE DETECTED (NONE DETECT); UR OPIATES QUAL PRESUMPTIVE POSITIVE (NONE DETECT); UR OXYCODONE QUAL NONE DETECTED (NONE DETECT); UR PCP QUAL NONE DETECTED (NONE DETECT)
[2018-10-27 06:05] LABS: BASO# 0.02 X1000 (0.0-0.2); BASO% 0.1 % (0.0-0.8); EOS# 0.03 X1000 (0.0-0.7); EOS% 0.2 % (0.0-10.0); HEMATOCRIT 39.6 % (42.0-52.0); IMM GRAN# 0.07 X1000 (0.0-0.04); IMM GRAN% 0.4 % (0.0-0.5); LYMPH# 0.31 X1000 (1.2-3.4); LYMPH% 1.9 % (20.5-51.1); MCH 27.7 PG (27-31); MCHC 32.8 g/dL (33-37); MCV 84.3 FL (81-99); MONO# 0.89 X1000 (0.11-0.59); MONO% 5.6 % (1.7-9.3); MPV 10.4 FL (7.4-10.4); NEUT# 14.62 X1000 (1.4-6.5); NEUT% 91.8 % (42.2-75.2); PLT 244 X1000 (130-400); RDW 13.5 % (11.5-14.5); WBC 15.94 X1000 (4.8-10.8)
[2018-10-27] MEDS: ZYVOX 600 MG/D5W 600 MG/300 ML IVPB IV SCH (06:06)
[2018-10-27] MEDS: PROTONIX IV SCH (06:06)
[2018-10-27 06:20] LABS: ALB/GLOB RATIO 0.8; ALBUMIN 2.4 g/dL (3.5-5.0); CALCIUM 7.8 mg/dL (8.8-10.2); CREATININE 4.7 mg/dL (0.7-1.2); TOTAL BILIRUBIN 1.73 mg/dL (0.20-1.00); TOTAL PROTEIN 5.5 g/dL (6.3-8.3)
--- NOTE | 2018-10-27 06:31 | Diag Imaging Result Doc PS360 ---
CT NECK W/O CONTRAST - 10/26/2018 INDICATION: evaluate for abscess COMPARISON: 06/27/2018 FINDINGS: There is an endotracheal tube and nasogastric tube. There is a right pleural effusion. There are numerous soft tissue metallic densities at the left side of the oral cavity and neck. No soft tissue gas or fluid collection. There is some ill-defined edema over the left side of the neck extending from the parotid gland to the supraclavicular fossa. The nasal passages are opacified by edematous mucosa. There is some minimal sinusitis. Bones are intact. IMPRESSION: 1. Ill-defined soft tissue edema at the left side of the neck. No fluid or gas collection. 2. Other nonspecific findings. This exam was performed using automated exposure control, adjustment of mA or kV according to patient size, and/or use of iterative reconstruction technique Electronically signed by Chay Steinberg 10/27/2018 6:29 AM
--- NOTE | 2018-10-27 07:06 | Diag Imaging Result Doc PS360 ---
EXAM: CHEST-PORTABLE 10/27/2018 HISTORY: respiratory failure TECHNIQUE: AP portable at 0530 COMMENT: There is an endotracheal tube with its tip at the thoracic inlet and an NG tube coiled in the fundus of the stomach. There is interstitial and alveolar opacity bilaterally particularly in the right lower lobe. This is worse than on 10/26/2018. There is also increasing pleural fluid particularly on the right. IMPRESSION: Worsening pulmonary edema and pleural effusions. Electronically signed by Dinesh Flores 10/27/2018 7:04 AM
--- NOTE | 2018-10-27 07:49 | Diag Imaging Result Doc PS360 ---
EXAM: CHEST-PORTABLE 10/27/2018 HISTORY: tube placement TECHNIQUE: AP chest COMMENT: There is an endotracheal tube with its tip above the thoracic inlet there is an NG tube which is coiled in the fundus of the stomach. There is alveolar opacity in the right lower and upper lobes. There is ill-defined opacity in the left base. Compared to the previous study of 10/27/2018 at 0530, the left lower lobe opacity has improved slightly and the lungs are better expanded. IMPRESSION: Pulmonary edema plus minus pneumonia with bibasilar atelectasis. Electronically signed by Dinesh Flores 10/27/2018 7:46 AM
[2018-10-27] MEDS ORDERED: ACTIVASE IV ONE (08:00)
[2018-10-27] MEDS ORDERED: DILUENT IV ONE (08:00)
[2018-10-27] MEDS ORDERED: NORCURON IV STA (08:49)
[2018-10-27] MEDS ORDERED: EPINEPHRINE 4 MG in NS 250 ML IV SCH (08:50)
[2018-10-27] MEDS: PITRESSIN 40 UNIT in NS 100 ML IV SCH ×2 (08:54→12:23)
[2018-10-27] MEDS ORDERED: ZITHROMAX 500 MG/NS 500 MG/250 ML IVPB IV SCH (09:15)
[2018-10-27] MEDS ORDERED: NS 500 ML ONE (09:31)
--- NOTE | 2018-10-27 09:33 | PROGRESS NOTE ---
DATE: 10/27/2018 SUBJECTIVE: Apparently, during the night, this patient was somehow stable with pressors and fluids. Oxygen saturation also was stable but dropped today, in the morning, this patient started to have low blood pressure, low oxygen saturation as low as the 30s, heart rate up and down, more respiratory issues, so we decided to change the endotracheal tube. His face and neck turned purplish. We continued with the pressors. We bolused him with IV fluids. We added a new vasopressor as well. Then the heart rate dropped and we did not feel a pulse so he received the CPR protocol for about 2 minutes aroun 8;15 am. He receive 2 amps of epinephrine. Since we believe that probably the problem was a sudden PE, we gave him a dose of alteplase x1. We also noticed that he has been having some dark blood coming out from the NG tube and we ordered 3 units of blood because of it. His hemoglobin today was 13 this morning. We will monitor this patient closely. Family members have been notified. The intensive care doctor, Dr. Palma, and myself talked to the family. They seem to understand. He is Full Code. We will continue managing this patient. OBJECTIVE: Vital Signs: Heart rate 57, blood pressure 74/57, oxygen saturation 73, on mechanical ventilation. HEENT: Head normocephalic. No trauma. He had some cutaneous lesions, probably fistula, close to the tracheostomy scar and appears to be clear. He has some scars. He has some erythema on the skin and earlier, his face and neck were purplish. Chest: Coarse breath sounds and rhonchi bilaterally. Cardiovascular: Irregular rate and rhythm. Abdomen: Soft. Extremities: Trace edema. No clubbing. Probably some cyanosis at the level of the lower extremities. Neurological Examination: The patient is on mechanical ventilation and sedated. Laboratory: This morning, WBC 15.9, hemoglobin 13, hematocrit 39.6, platelets 244,000. Sodium 137, potassium 4, chloride 95, bicarbonate 29, BUN 31, creatinine 4.7, glucose 80, calcium 7.8. AST 914, ALT 906, alkaline phosphatase 71. CK 16,547. Albumin 2.4. ASSESSMENT AND PLAN: 1. Septic shock, probably secondary to aspiration pneumonia, neck abscess. We will continue broad-spectrum antibiotics. We have consulted infectious disease department to evaluate this patient as well. He has been placed on vasopressors and actually, we increased the dose of the pressors again and we added another one. He is receiving fluid. We will continue with the same monitor. He is remarkably sick. 2. Possible pulmonary embolism. He received a dose of alteplase a few minutes ago. We believe he had an episode of massive pulmonary embolism that dropped the oxygen saturation and overall the vital signs. We will monitor this patient closely. 3. Acute hypoxemic respiratory failure. Continue mechanical ventilation. 4. Likely upper gastrointestinal bleed. He will receive 2 units of blood. Continue with nasogastric to suction. The blood is dark. 5. Rhabdomyolysis. Continue with intravenous fluids. 6. Acute renal failure, likely secondary to septic shock and rhabdomyolysis. 7. Status post recent surgery for cancer, laryngeal cancer and tongue. Aware. Status post also radiation 2 days ago. 8. Tobacco abuse. Current status not known. 9. Elevated troponin, likely secondary to septic shock. 10. Hyperkalemia. Responded to treatment. Potassium level in the morning was normal. 11. Gastrointestinal prophylaxis with Protonix. 12. S/P Cardiac Arrest, this patient received chest compression and ACLS protocol so far 3 times, around 8: 15 am, 9:04, 9:43 am, he received epinephrin, he is on 3 pressors at this moment. Patient is remarkably sick, He has a really low possibility of getting better, but we will continue with aggressive management, family has been notified a little bit ago, Pulmonary department, Cardiology department, nephrology on board. Extremely low prognosis. Time taking care of this patient in the ICU: 3 hours cc: Ck Trejo MD [facility]
[2018-10-27 09:52] LABS: BASO# 0.03 X1000 (0.0-0.2); BASO% 0.2 % (0.0-0.8); EOS# 0.04 X1000 (0.0-0.7); EOS% 0.2 % (0.0-10.0); HEMATOCRIT 39.2 % (42.0-52.0); HEMOGLOBIN 12.4 g/dL (14.0-18.0); IMM GRAN# 0.27 X1000 (0.0-0.04); IMM GRAN% 1.5 % (0.0-0.5); LYMPH# 1.41 X1000 (1.2-3.4); MCH 28.1 PG (27-31); MCHC 31.6 g/dL (33-37); MCV 88.7 FL (81-99); MONO# 0.66 X1000 (0.11-0.59); MONO% 3.7 % (1.7-9.3); MPV 10.1 FL (7.4-10.4); NEUT# 15.22 X1000 (1.4-6.5); NEUT% 86.4 % (42.2-75.2); PLT 185 X1000 (130-400); RBC 4.42 XMIL (4.7-6.1); RDW 13.6 % (11.5-14.5); WBC 17.63 X1000 (4.8-10.8)
[2018-10-27 10:01] LABS: BANDS 20 % (0-1); LYMPHS 12 % (21-51); MONO 4 % (1-9); SEGS 54 % (42-75)
--- NOTE | 2018-10-27 10:01 | Diag Imaging Result Doc PS360 ---
EXAM: CHEST-PORTABLE 10/27/2018 HISTORY: PICC line placement TECHNIQUE: AP portable at 0948 COMMENT: There is an endotracheal tube with its tip at the thoracic inlet and an NG tube coiled in the stomach. There is a left-sided PICC line with its tip just above the right atrium. There is perihilar pulmonary edema which appears to be slightly improved since the previous study of this date at 0742. IMPRESSION: Slightly improved pulmonary edema. Electronically signed by Dinesh Flores 10/27/2018 9:59 AM
[2018-10-27 10:05] LABS: CALCIUM 7.1 mg/dL (8.8-10.2); CREATININE 5.2 mg/dL (0.7-1.2); MAGNESIUM 1.8 mg/dL (1.5-2.7); PHOSPHORUS 8.7 mg/dL (2.7-4.5); POTASSIUM 4.6 mmol/L (3.5-5.1); TOTAL BILIRUBIN 1.91 mg/dL (0.20-1.00)
[2018-10-27] MEDS: NEO-SYNEPHRINE 50 MG in NS 250 ML IV SCH ×2 (10:40→12:23)
[2018-10-27 11:10] LABS: ALLEN TEST YES; BE -13.6 mmoll (-3.0-3.0); BLOOD TYPE ARTERIAL; HCO3-(ACT) 14.3 mmoll (20.0-26.0); METHB 1.6 % (0.0-1.5); O2HB 97.3 % (95.0-99.0); PCO2(98.6) 30 mmHg (35-45); PO2(98.6) 226 mmHg (60-100); SAMPLE BLOOD; SAO2 99.8 % (95.0-100.0); SRATE 28 BPM; THB 13.5 g/dL (11.5-17.4); TVOL 900 mL; pH(98.6) 7.23 (7.35-7.45)
[2018-10-27 11:11] LABS: MODALITY VENTILATOR
[2018-10-27 11:15] LABS: HEMATOCRIT 40.1 % (42.0-52.0); HEMOGLOBIN 12.8 g/dL (14.0-18.0)
[2018-10-27] MEDS ORDERED: SODIUM BICARBONATE 8.4% IV PUSH ONE (11:51)
[2018-10-27] MEDS ORDERED: SODIUM BICARBONATE 8.4% 150 MEQ in D5W 1,000 ML IV SCH (12:00)
--- NOTE | 2018-10-27 12:33 | INFECTIOUS DISEASE CONSULT REP ---
DATE: 10/27/2018 CONCLUSION: Patient has been admitted to the hospital with a pulmonary embolus. He also has bilateral pulmonary infiltrates that could be due to pulmonary venous congestion and/or pneumonia. RECOMMENDATIONS: I agree with treating the patient with Zyvox and Zosyn. I have added azithromycin intravenously. I have also ordered a procalcitonin level. DISCUSSION: The patient is unable to provide a history, and family members are not here at this time. The patient already has coded once this morning. The patient initially was found unresponsive. He was taken to the emergency room; he vomited. He was intubated and sedated. The patient's chest x-ray shows bilateral opacities. Blood, urine and sputum cultures are pending. CBC shows a white count of 15,940, hemoglobin 13, platelet count 244,000. Blood gases show a pH of 7.42, a PO2 of 201, and a pCO2 of 49. Creatinine is 4.7. GFR is 14. CK is 16,547. Urinalysis showed no white cells or bacteria. Drug screen was positive for opiates. Chest x-ray shows bilateral opacities. PAST MEDICAL HISTORY: Positive for laryngeal cancer and tongue cancer. The patient has also had a GI bleed. PAST SURGICAL HISTORY: Positive for appendectomy, tendon repair, right ankle surgery, left ankle surgery, an excisional biopsy of the ulceration of his tongue. SOCIAL HISTORY: The patient is . ALLERGIES: He does not have any drug allergies. HOME MEDICATIONS: The home medications include duloxetine, lisinopril morphine, Zofran and tramadol. PHYSICAL EXAMINATION: Vital Signs: Earlier the patient's temperature was 102 degrees, now it is 100.8. Pulse 105, respirations 16, blood pressure 93/66. The patient is 5 feet 10 inches tall, weighs 270 pounds. General: This is an ill-appearing young male. He is lying in the bed in ICU and he has an orotracheal tube that has just been inserted. Head, eyes, ears, nose and throat: Orotracheal tube is in place. There is no drainage from the nose or ears. Neck: No meningismus. Lungs: There were bilateral rhonchi. Cardiovascular: Heart rate is rapid and regular. Abdomen: Soft and does not appear to be tender. Neurologic: The patient is obtunded. He does not respond to verbal stimuli. He does not have a tremor. Integument: He has tattoos, but no rashes. Thank you for the consult. cc: Jona Reece MD
--- NOTE | 2018-10-27 12:51 | NEPHROLOGY CONSULTATION ---
DATE: 10/27/2018 REASON FOR ADMISSION: Unresponsiveness. REASON FOR CONSULTATION: Acute kidney injury. CONSULTING PHYSICIAN: Dr. Latisha Morales, BREANA. HISTORY OF PRESENT ILLNESS: Mr. Taylor is a 43-year-old white male, who is currently intubated with sedation secondary to respiratory failure. The patient's chart reveals that he has a history of laryngeal cancer with cancer to the left side of his tongue. He had presented to the emergency room via EMS and was found to be unresponsive. 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 He was at the station and was sleeping around 11. They noticed a change in his breathing. Upon evaluation, he was found to have an O2 saturation of 64%. He was given Narcan. His respirations increased somewhat. He did have some emesis. The patient was given a 400 mL IV fluid bolus with some Zofran en route to the emergency room. In the emergency room, patient was unresponsive. He was intubated. He was admitted to ICU for further monitoring and evaluation. He remains intubated with sedation. At this time, there are no family members available. PAST MEDICAL HISTORY: His past medical history shows cancer of the tongue and the mouth, prior GI bleed. The patient was found to be positive for melena. PAST SURGICAL HISTORY: Shows appendectomy, tendon repair, right ankle surgery, left ankle surgery, an excisional biopsy of the ulceration of the left ventral tongue. SOCIAL HISTORY: He is . He works. Unknown tobacco or alcohol use. ALLERGIES: Listed as no known drug allergies. HOME MEDICATIONS: Have yet to be reconciled. REVIEW OF SYSTEMS: Review of systems unable to be obtained per patient. Most information obtained per nurse or per chart. VITAL SIGNS: The patient's most recent vital signs: His temperature is 100.2 degrees, blood pressure 93/66, heart rate 104, respirations are 10. He is currently on 100% FiO2. His last recorded saturation is 97%. He has had 932 in; 600 mL out to Blackwell catheter and NG tube. LABORATORY DATA: Sodium 137, potassium 4.5, chloride 95, CO2 29. BUN 31, creatinine 4.7, glucose is 80, anion gap of 13, calcium is 7.8, albumin 2.4. White count 15.94, hemoglobin 13, hematocrit 39.6, with a platelet count of 244. The patient has positive CPK. ABGs with pH 7.42, CO2 49, PO2 201, bicarbonate 29.7 with a lactate of 2.8 on 100% FiO2. PHYSICAL EXAMINATION: General: This is a 43-year-old white male lying flat. He is in bed. He is on Levophed, Diprivan and fentanyl. He is also receiving 100% FiO2 per ventilator support. HEENT: Normocephalic, atraumatic. Conjunctiva is pale. His pupils are constricted. Neck: Supple. Trachea appears midline. Negative JVD. Cardiovascular: He is regular rate and rhythm. He is slightly tachycardic. Lungs: Clear to auscultation bilateral with ventilatory support. Abdomen: Quiet. Bowel sounds, though positive, with quiet sounds noted over 1 minute auscultation. The patient has NG tube to low intermittent suction. This has black coffee-ground material inside the tubing. Genitourinary: Not inspected. Blackwell catheter is in place. Extremities: Currently have trace pretibial edema. Neurological: As mentioned above. ASSESSMENT AND PLAN: 1. Acute kidney injury. This appears to be acute tubular necrosis, more than likely secondary to respiratory failure/shock. Patient at this time has minimal urine output. BUN and creatinine are fairly stable. No indications for dialysis intervention at this time. We will monitor his labs on a daily basis. 2. Acute respiratory failure. Patient is intubated. He is on ventilatory support with sedation. This is followed by Dr. Palma with Pulmonology and primary care. 3. Pneumonia with possible aspiration. Patient is on renal-dosed antibiotics of Zosyn. 4. Electrolytes. Patient had initial hyperkalemia. He received insulin and D 50 with bicarbonate in the emergency room. Potassium is down this morning. 5. Sepsis secondary to pneumonia. White count has been up in the 22 range, now down to 15.94. 6. Hypotension with shock. Patient is continuing to receive pressor support. I would like to thank you for allowing us to follow with this patient. Dictated by RIVAS Hightower for Federico Lewis MD Face to face encounter, data reviewed, discussed with Cecilia Yoon on 10/27/18. I agree with the above assessment and plan of care. cc: RIVAS Hightower MD [facility]
--- NOTE | 2018-10-27 14:46 | ECHO REPORT ---
ORDER DATE: 10/27/2018 2-D ECHOCARDIOGRAM: INTERPRETING PHYSICIAN: Dr. Alan High. ECHOCARDIOGRAPHIC MEASUREMENTS: Technically suboptimal study. 1. Left ventricular diastolic diameter 2.9 cm. 2. Left ventricular posterior wall 0.8 cm. 3. Interventricular septum 0.8 cm. 4. Aorta 3.4 cm. 5. Left atrium 2.7 cm. 6. Right ventricle 5 cm. SUMMARY OF THE 2-DIMENSIONAL IMAGIN. Right ventricle was dilated with severely reduced right ventricular systolic function. 2. Peak velocity across the tricuspid valve was 2.9 m/sec. 3. Pulmonary artery systolic pressure of 44 mmHg. 4. Normal left ventricular cavity size. 5. Endocardium not well visualized. 6. Tachycardia was noted. Heart rate up to 140 to 150 beats per minute. Estimated ejection fraction of 55-60%. Tachycardia could overestimate the left ventricular systolic function. 7. There is trace mitral regurgitation. 8. Mild tricuspid regurgitation. 9. Peak velocity Dopplers across the aortic valve could not be obtained. 10. There is no pericardial effusion. cc: MD Deisy La PA
--- NOTE | 2018-10-27 14:48 | PULMONOLOGY PROGRESS NOTE ---
DATE: 10/27/2018 BRIEF INTERIM SUMMARY OF MORNING EVENTS: I was notified earlier this morning at around shift change that the patient had an acute change. Oxygen saturation had dropped into the 60s and heart rate was in the 120s. He was not getting good volumes and patient was reintubated. This did not change his oxygen saturations. He remained tachycardic, hypotensive and with low oxygen saturations and had developed cephalic cyanosis. I notified nursing staff to have thrombolytics at the bedside. After evaluation, chest x-ray did not indicate why patient would be cyanotic. The patient began to have progressive bradycardia. Patient also had evidence of prior GI bleeding with coffee-grounds material in the NG tube. The patient had an imminent cardiac arrest and what would appear to have been related to possible pulmonary embolus. This could not be further verified due to the acutely decompensated nature of the case. I elected to proceed with a rapid instillation of tPA, which was given by the nursing staff. The patient had a bradycardia during instillation and received doses of epinephrine with recovery of his heart rate. The patient sustained a cardiopulmonary arrest and CPR was initiated. Additional fluid resuscitation occurred. The patient did regain a blood pressure and a pulse with an oxygen saturation now into the 98 to 100 percent following the CPR. The patient had at least 2 to 3 additional of these events through the morning. While at the bedside, a PICC line was placed and verified by chest x- ray. An emergent CVP was obtained and was elevated at 20. The patient was typed and crossed for several units of blood, anticipating significant drop in his hemoglobin following the resuscitation and the tPA. Hemoglobin was at 12 and therefore blood was not transfused. The patient is now on multiple vasopressors but continues to have hypotension and lactic acidosis. He remains cold and cyanotic. Most recent arterial blood gas at 10:55 this morning, pH 7.23, pCO2 of 30, PO2 of 226 with a lactate of 11.9. The patient currently has a palpable blood pressure and heart rate. He is unlikely to survive ongoing resuscitation attempts. Palliative Care is currently discussing additional CPR/ACLS measures with the family given his extremely poor prognosis. MOST RECENT LABORATORY DATA: Arterial blood gas as per above. White blood count 17.26, hemoglobin 12.8, platelet count 185,000. Sodium 143, potassium 4.6, chloride 98, bicarbonate 26, anion gap 25, BUN 33, creatinine 5.2. AST 1231. CPK earlier this morning 16,547. Microbiology is still pending. IMAGING: Chest x-ray at 9:48 this morning. Endotracheal tube in good position. PICC line in good position. Mild perihilar edema which actually looks improved compared to earlier this morning. IMPRESSION: 43-year-old male with: 1. Septic shock. 2. Presumptive pulmonary embolus (I failed to mention that echocardiogram performed later in the morning does demonstrate significant right ventricular dilation consistent with a diagnosis of pulmonary embolus). 3. Presumptive head and neck infection/abscess. 4. Pneumonia. 5. Acute hypoxemic respiratory failure. 6. Lactic acidosis. 7. Acute renal failure. 8. Rhabdomyolysis. 9. Sinusitis. 10. Status post cardiopulmonary arrest with CPR at least 4 times this morning. 11. Sinusitis. 12. Status post tongue cancer surgery. 13. Status post chemotherapy for tongue cancer. PLAN: 1. Continue current vasopressor support. CVP currently 20 and he remains hypotensive. 2. Continue broad-spectrum antibiotics. 3. Continue gastric acid suppression. 4. Prognosis is extremely poor. He is unlikely to survive this hospital stay. The Palliative Care nurse is having ongoing discussions with the family. TIME SPENT: Critical care management greater than 120 minutes. cc: Carter Palma MD [facility]
--- NOTE | 2018-10-27 14:48 | PROGRESS NOTE ---
DATE: 10/27/2018 ADDENDUM: I just met with the family including his mother and his , but there were multiple family members in the meeting room. I updated them about the situation, and they asked me to continue with the same management for now. They want to be with the patient 1 by 1, and then at the end probably they will decide to withdraw care. Previously, I said that this patient coded 3 times, but there was a fourth time around 10:00 to 11:00 in the morning. We brought him back, and since then he has been with 3 pressors. I believe epinephrine has been added to his medications as well. This patient is acidotic so he is receiving bicarbonate drip, that is the plan for now. We will continue doing everything for this patient. Likely, this patient had a massive PE this morning that caused the oxygen saturation, vital signs, and everything to be unstable. He does have an extremely poor prognosis. Palliative Care team on board. I have already talked to the family about the goals of care. cc: Ck Trejo MD
[2018-10-27] MEDS ORDERED: NS 500 ML IV SCH (15:00)
[2018-10-27] MEDS ORDERED: MORPHINE IV PRN (15:34)
[2018-10-27] MEDS ORDERED: ATIVAN IV PRN (15:34)
--- NOTE | 2018-10-27 15:52 | CONSULTATION ---
DATE OF CONSULTATION: 10/27/2018 IMPRESSION: 1. Strongly suspect significant pulmonary embolus this morning given dilated hypocontractile right ventricle on echocardiography. 2. Sepsis. Potential source probably neck abscess. 3. Shock probably multifactorial related to sepsis and significant pulmonary embolus. 4. Probable aspiration. 5. Acute renal failure. 6. Rhabdomyolysis. 7. Respiratory failure. 8. 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 The patient has had resection has been receiving radiation therapy. RECOMMENDATIONS: 1. Continue supportive care. 2. Prognosis appears to be very poor. I discussed this with the family at length. They are considering end of life decisions, and possibly withdrawing care. HISTORY: This 43-year-old white male with past history of squamous cell carcinoma of the tongue which extended into the head and neck region, hypertension, depression, obesity and ADHD was admitted yesterday after he was found unresponsive and with hypoxemia. EMS was summoned. He is not improved with Narcan. After arriving to the emergency room here, he was intubated and started on mechanical ventilation. He had evidence of sepsis with significant leukocytosis and reported drainage of pus when neck was massaged. Pus drained in oropharynx. He stabilized initially with ventilator support, volume replacement and pressors. However, this morning he suddenly developed further hypoxemia and tachycardia, and hemodynamic instability. Pulmonary embolus was suspected, and he was given thrombolytic therapy. He has continued with difficulty with hemodynamics and is on several pressors presently. He is unresponsive. PAST MEDICAL HISTORY: 1. Recent squamous cell carcinoma of the tongue with extension. Patient is status post resection, and has also been receiving radiation therapy. 2. Hypertension. 3. Depression. 4. ADHD. 5. Obesity. PAST SURGICAL HISTORY: 1. Tracheostomy. 2. Appendectomy. 3. Multiple surgeries on the right ankle and multiple surgeries on left ankle. ALLERGIES: No known drug allergies. MEDICATIONS PRIOR TO ADMISSION: As listed. SOCIAL HISTORY: Patient has previous history of tobacco use. He also drank beer on a fairly regular basis. Patient is currently , and has several children. He reportedly has been going through a divorce. FAMILY HISTORY: Noncontributory. REVIEW OF SYSTEMS: Not obtainable given patient's condition. PHYSICAL EXAMINATION: An obese adult male on the ventilator who is unresponsive. Blood pressure 127/93, heart rate 120, and irregular.HEENT: Mucous membranes are moist. Neck: Supple without discernible jugular distention. Chest: Auscultation of the chest reveals coarse breath sounds anteriorly. Cardiac: Exam reveals a regular rate and rhythm without appreciable murmur or gallop. Abdomen: Soft. Bowel sounds are normal. Extremities: Mild edema. PERTINENT DATA: Twelve lead EKG on admission demonstrates sinus tachycardia. Limited echocardiography this morning demonstrates significant right ventricular dilatation with significant reduction in right ventricular systolic function. Left ventricular ejection fraction appears to be normal. LABORATORY DATA: White blood cell count of 17.63, hematocrit 40.1, hemoglobin 12.8, and platelet count 185,000. Sodium 143, potassium 4.6, chloride 98, carbon dioxide 20, BUN 33, and creatinine 5.2. Glucose 292. Troponin 0.318. CPK 18,232. CPK MB 33.53. CPKMB index 0.2. cc: Kenneth Underwood MD
[2018-10-27] MEDS ORDERED: ATIVAN IV ONE (16:31)
[2018-10-27] MEDS ORDERED: MORPHINE IV ONE (16:31)
[2018-10-27 17:32] VITALS: BP 43/33
--- NOTE | 2018-10-28 14:51 | DISCHARGE SUMMARY ---
ADMISSION DATE: 10/26/2018 DISCHARGE DATE: 10/27/2018 DISCHARGE DIAGNOSES: 1. Septic shock, likely due to pneumonia, possible neck abscess. 2. Strongly suspect significant pulmonary embolism this morning given dilated right ventricular and hypokinesis on echocardiogram. 3. Acute hypoxemic respiratory failure. 4. Multiorgan failure. 5. Upper GI bleed. 6. Rhabdomyolysis. 7. Acute renal failure. 8. Shock liver. 9. Elevated troponin's likely secondary to septic shock. 10. Hyperkalemia on admission. 11. Status post multiple cardiac arrests x4. 12. Lactic acidosis. 13. Sinusitis. 14. Squamous cell carcinoma of the tongue. 15. Possible tobacco use. 16. This patient today 10/27/2018 at 16:46. Family has been notified. No evidence of spontaneous breathing, reflex or heartbeat. HOSPITAL COURSE: A 43-year-old male with a past medical history of tongue cancer, squamous cell carcinoma, status post recent radiation, presented to the emergency department via the EMS after being found unresponsive. 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 We received the report that he was at the station sleeping and around 11:00 in the morning they noticed a change in his breathing. When they evaluated him, he was found breathing about 6 times a minute and the oxygen saturation was around 64%. He was given Narcan and his respirations increased somewhat. Apparently, he vomited likely he aspirated. He received some IV fluids and Zofran in route to the emergency room. On arrival to the emergency room, the patient was intubated per the emergency room physician and placed on a ventilator. At the moment of my physical exam, the patient was already intubated and sedated with fentanyl and propofol. Initially, the patient was tachycardic and tachypneic, low blood pressure. He was placed on vasopressors due to septic shock. He has pneumonia which is probably secondary to aspiration, but also he probably had a neck infection/abscess. When the neck was examined and massaged, a significant amount of pus did come out of the oropharynx. We gave him enough fluid upon admission and during the night. We put him on broad-spectrum antibiotics. He received gastric suppression, DVT prophylaxis and vasopressors. We did a head CT that did not show any hemorrhage, showed mild ethmoid and maxillary mucosal thickening with a small air-fluid level in the left maxillary sinus. Also, we did a neck CT that showed an ill defined soft tissue edema at the left side of the neck, but no fluid or gas collection, and other nonspecific findings. Two echocardiograms were done, one on 10/26/2018 and the second one on 10/27/2018. As per Dr. Underwood and the report by Dr. High, there is a right ventricle that was dilated with severely reduced right ventricular systolic function. We do believe that probably that was related to a severe pulmonary embolism. Today in the morning, this patient's oxygen saturation and blood pressure dropped suddenly. We also notice some dark blood coming out from the NG tube. Also, his heart rate was going up. We re-evaluated this patient at the bedside, given the acute changes, we changed the endotracheal tube without any significant response. After re-evaluating the patient multiple times, we decided to go ahead and use alteplase due to the big possibility of severe pulmonary embolism x1. The patient continued to be unstable. He was placed back on mechanical ventilation with 100% oxygen supply. We basically did CPR 4 times, most of them because of the PEA, but after a short course of treatment, he rhythm came back. The first time was at around 8:15 in the morning, the second time 9:04 in the morning, and the third time around 3:49 in the morning. Then, a new episode around 10:11 in the morning. All of them lasted between 2 to 3 minutes, and he received multiple treatments with epinephrine. He spent the night with only Levophed, but we added 2 more. At some point, we added a 4th vasopressor. The family has been notified of all of these problems. After meeting with them multiple times, they have decided to withdraw care. This patient at 16:46 after extubation and stopped treatment/withdraw care per family petition. cc: Ck Trejo MD [facility]
== END 2018-10-27 16:46 | disposition expired | DRG 871 ==
LOC: ED 12:03 → ICU 20:13
PROVIDERS: ATTEND Internal Medicine
CPT/HCPCS: 31500; 36569; 51702; 70450; 70490; 71010; 71045; 80053; 80101; 80196; 80301; 80307; 80324; 80329; 80345; 80346; 80353; 80358; 80361; 80365; 81001; 82003; 82550; 82553; 82784; 82805; 82948; 83605; 83735; 83992; 84100; 84145; 84484; 85014; 85018; 85025; 85610; 85730; 86850; 86900; 86901; 86920; 87040; 87070; 87088; 87205; 93005; 93306; 93308; 94640; 96365; 96366; 96367; 96368; 96375; 99285; 99291; A9270; C9113; G0431; G0434; G0479; G0480; G6038; G6039; J0131; J0171; J0330; J1644; J1720; J2020; J2060; J2270; J2310; J2370; J2543; J2997; J3010; J3370; J7030; J7040; J7050; J7070; S0164; XXXXX